=== PATIENT | male | born 1995 | race Asian ===

== ENCOUNTER → 2021-06-30 14:11 | Outpatient (CLI) | payer OTHER, SELFPAY | PROVIDERS: Visit Provider Family Medicine | DX: Z23 Encounter for immunization (principal) ==

== ENCOUNTER 2022-02-04 00:23 | Emergency (ER) | payer BC, SELFPAY ==
--- NOTE | 2022-02-04 03:40 | CT_ITS ---
STUDY: CT ABDOMEN AND PELVIS WITH CONTRAST REASON FOR EXAM: Male, 26 years old. RLQ PAIN RADIATION DOSAGE (If Supplied By Facility): CTDIvol = ( 10.91 ) mGy, DLP = ( 465.09 ) mGycm TECHNIQUE: Transaxial images were obtained from the dome of the diaphragm to the symphysis pubis without oral contrast. IV 100mL Isovue-300 was administered. Sagittal and coronal images were reconstructed. Individualized dose optimization techniques were used for this CT. COMPARISON: None. FINDINGS: LOWER CHEST: Normal. LIVER: Normal. GALLBLADDER/BILE DUCTS: Normal. PANCREAS: Normal. SPLEEN: Normal. ADRENAL GLANDS: Normal. KIDNEYS/URETERS/BLADDER: Normal. RETROPERITONEUM/AORTA: Normal. BOWEL/MESENTERY: Focal wall thickening and pericolonic fat stranding in the cecum with trace free fluid in the right lower quadrant.. APPENDIX: Identified and normal. PERITONEUM: Trace free fluid in the pelvis. REPRODUCTIVE ORGANS: Normal. BONES/SOFT TISSUES: No acute abnormality. OTHER: None. CT/Abdomen/Pelvis W IV Cont ONLY IMPRESSION: Normal appendix. Inflammatory changes involving the cecum, consistent with cecal colitis. Electronically Signed: Rachid Hagen MD at 4:11 EDT ,
[2022-02-04 06:51] LABS: Albumin, Serum 3.8 g/dL (3.2-5.0); BUN 10 mg/dL (7-18); BUN/Creat Ratio 9.3 RATIO (10-20); Creatinine, Serum 1.08 mg/dL (0.70-1.30); EST Glomerular Filtration Rate 87 mL/min (>60); Est Glom Filt Rate - Afr Amer 105 mL/min (>60); Globulin 3.7 g/dL (2.2-4.2); Glucose 95 mg/dL (74-106); Protein, Total 7.5 g/dL (6.4-8.2)
[2022-02-04 06:52] LABS: AST(SGOT) 13 U/L (15-37); Alanine Aminotransfer ALT/SGPT 25 U/L (16-61); Alkaline Phosphatase 82 U/L (45-117); Anion Gap 5 (5-15); Calcium,Total 9.2 mg/dL (8.5-10.1); Chloride 106 mmol/L (98-107); Potassium 4.1 mmol/L (3.5-5.1); Sodium Level 140 mmol/L (136-145)
[2022-02-04 16:23] LABS: Hematocrit 45.6 % (40-54); Hemoglobin 15.4 g/dL (13.0-16.5); Mean Corp Hgb Conc 33.8 g/dL (32-36); Mean Corpuscular Hgb 29.8 pg (27.0-32.0); Mean Corpuscular Volume 88.2 fL (80-94); Mean Platelet Vol. 11.8 fl (6.2-12.0); Platelet Count 147 K/mm3 (150-450); RBC Distribution Width CV 13.3 % (11.6-14.6); RBC Distribution Width SD 43.4 fl (35.1-43.9); Red Blood Count 5.17 M/mm3 (4.6-6.2); White Blood Count 13.7 K/mm3 (4.4-11.0)
[2022-02-04 16:24] LABS: Absolute Lymphocyte Count 1.68 X10^3/uL (0.83-4.51); Absolute Neutrophil Count 10.5 X10^3/uL (2.0-7.7); Basophil# 0.03 X10^3/uL; Basophil% 0.2 % (0-1); Eosinophil# 0.44 X10^3/uL; Eosinophils% 3.2 % (0-5); Lymphocyte # 1.68 X10^3/ul (0.83-4.51); Lymphocyte % 12.3 % (19-41); Monocyte# 1.03 X10^3/uL; Monocyte% 7.5 % (0-10); Neutrophil # 10.46 X10^3/uL (2.7-7.7); Neutrophil % 76.4 % (47-70)
--- NOTE | 2022-02-05 00:26 | ED.VIS.GI ---
HPI HPI - GI History of Present Illness Informant: patient Narrative Narrative: Patient presents with a gradual onset of pain mostly in the lower abdomen to the right. He thought it was gas pressure. It is mild currently. It was moderate at worst. He does feel as though it is getting better now. No nausea vomiting diarrhea. No fevers or chills. He also states that he thinks panic added to it. He thinks it might of been after he ate a weird sauce. He has no history of Crohn's or ulcerative colitis in him or in the family. He is overall healthy with no medical problems, no surgery, no meds and no allergies. He does take occasional multivitamins. He states he might be a little constipated but is still moving his bowels. This chart is done in its entirety a day or more after the patient's visit. This is due to an extended computerized downtime that included computer, Internet, phones, radiology system and transient inability to obtain medications. There may be details that are missed due to the delayed documentation. There was also no ability to research old information that we may have on the patient. Also, this is done with [employer] software that may have errors. Minimizing these errors are attempted, but all may not be able to be found and corrected. ROS ROS ED Constitutional Constitutional ED: Denies chills, fever(s) or sweats ENT ENT ED: Denies rhinorrhea or sore throat Cardiovascular Cardiovascular: Denies chest pain or palpitations Respiratory/Chest Respiratory/Chest: Denies cough Gastrointestinal Gastrointestinal: Reports abdominal pain and constipation; Denies diarrhea, melena, nausea or vomiting Genitourinary Genitourinary ED: Denies dysuria, hematuria or urinary frequency Musculoskeletal Musculoskeletal: Denies back pain Integumentary Denies rash Neurologic Neurologic: Denies paresthesias or weakness Endocrine Endocrinology: Denies polydipsia or polyuria Hematologic/Lymphatic Hematologic/Lymphatic: Denies easy bleeding or easy bruising Allergic/Immunologic Allergic/Immunologic ED: Denies urticaria EXAM Physical Exam Const Positive well nourished and well developed General Appearance ED: well developed and NAD HEENT Reports moist mucous membranes; Denies dry mucous membranes atraumatic Mouth ED: No dry mucous membranes Mouth: No dry mucous membranes Eyes General Eye ED: Negative for pale conjunctiva or scleral icterus Neck no JVD Resp normal respiratory effort and clear to auscultation bilaterally Cardio regular rate and regular rhythm GI non-distended and no masses GI Narrative: Bowel sounds are normal. Abdomen is flat. There is some very mild nonfocal tenderness toward the right lower quadrant. No rebound or guarding. No CVA tenderness Auscultation: normoactive bowel sounds Back/Spine no CVA tenderness Extremity full ROM Extremity Narrative: Negative psoas sign. Neuro Sensorium / Orientation: alert Psych mental status grossly normal Skin no wounds Lesions: no lesions Rashes: no rashes MDM MDM MDM Narrative Medical decision making narrative: Patient's white count was just slightly elevated at 13 7. Remainder of CBC was normal. Platelets were just a hair low. Electrolytes liver function tests were normal. Patient was reexamined. He still had some very mild tenderness to the right lower quadrant. Since that he still has this and his white count is slightly elevated we did do a CT of his abdomen. There were some inflammatory changes around the cecum consistent with cecal colitis but they saw the appendix and the appendix itself looked normal. I explained the findings to the patient. I explained that when the appendix is seen and is normal that significantly decreases the chance of having acute appendicitis. He needs to be cautious though. If he has worsening pains, vomiting fever or blood in the stool he may need to come back for repeat evaluation. Since he has inflammatory changes pain and a slight white count I will start him on antibiotics. We will have him follow-up with gastroenterology. Lab Data Attestation: I reviewed the patient's lab results. Labs: Laboratory Results - last 24 hr 02/04/22 02/04/22 01:25 01:25 WBC 13.7 H RBC 5.17 Hgb 15.4 Hct 45.6 MCV 88.2 MCH 29.8 MCHC 33.8 RDW Std Deviation 43.4 RDW Coeff of Rl 13.3 Plt Count 147 L MPV 11.8 Immature Gran % (Auto) 0.400 Neut % (Auto) 76.4 H Lymph % (Auto) 12.3 L Cascade % (Auto) 7.5 Eos % (Auto) 3.2 Baso % (Auto) 0.2 Absolute Neuts (auto) 10.5 H Absolute Lymphs (auto) 1.68 Sodium 140 Potassium 4.1 Chloride 106 Carbon Dioxide 29.0 Anion Gap 5 BUN 10 Creatinine 1.08 Est GFR (MDRD) Af Amer 105 Est GFR (MDRD) Non-Af 87 BUN/Creatinine Ratio 9.3 L Glucose 95 Calcium 9.2 Total Bilirubin 0.70 AST 13 L ALT 25 Alkaline Phosphatase 82 Total Protein 7.5 Albumin 3.8 Globulin 3.7 Albumin/Globulin Ratio 1.0 Radiography Diagnostic Testing: Clinical Impression(s) from Imaging Studies Abdomen/Pelvis CT 02/04/22 03:40 IMPRESSION: Normal appendix. Inflammatory changes involving the cecum, consistent with cecal colitis. Electronically Signed: Rachid Hagen MD at 4:11 EDT , Discharge Plan Triage ED Provider: Joshua Stevens Dx/Rx/DC Orders Clinical Impression: Colitis, Abdominal pain, Leukocytosis Primary Care Provider: Care Physician,No Primary Disposition Disposition: Home, Self Care Discharge Date/Time: 02/04/22 08:04
== END 2022-02-04 08:04 | disposition home or self-care (01) ==
LOC: ED 05:47
PROVIDERS: Emergency Provider Emergency Medicine; Visit Provider Emergency Medicine
DX: K52.9 Noninfective gastroenteritis and colitis, unspecified (principal); R10.813 Right lower quadrant abdominal tenderness; D72.829 Elevated white blood cell count, unspecified
CPT/HCPCS: 36415; 74177; 80053; 85025; 99284; Q9967

== ENCOUNTER → 2022-12-12 | Outpatient (CLI) | payer BC, SELFPAY ==
[2022-12-12 11:11] LABS: Absolute Lymphocyte Count 2.29 X10^3/uL (0.83-4.51); Absolute Neutrophil Count 2.3 X10^3/uL (2.0-7.7); Basophil# 0.06 X10^3/uL; Basophil% 1.1 % (0-1); Eosinophil# 0.31 X10^3/uL; Eosinophils% 5.8 % (0-5); Hematocrit 45.3 % (40-54); Hemoglobin 14.8 g/dL (13.0-16.5); Lymphocyte # 2.29 X10^3/ul (0.83-4.51); Lymphocyte % 42.6 % (19-41); Mean Corp Hgb Conc 32.7 g/dL (32-36); Mean Corpuscular Hgb 28.8 pg (27.0-32.0); Mean Corpuscular Volume 88.1 fL (80-94); Mean Platelet Vol. 11.7 fl (6.2-12.0); Monocyte# 0.45 X10^3/uL; Monocyte% 8.4 % (0-10); NRBC Flagged by Analyzer 0 % (0-5); Neutrophil # 2.26 X10^3/uL (2.7-7.7); Neutrophil % 42.1 % (47-70); Platelet Count 173 K/mm3 (150-450); RBC Distribution Width CV 12.9 % (11.6-14.6); RBC Distribution Width SD 42.2 fl (35.1-43.9); Red Blood Count 5.14 M/mm3 (4.6-6.2); White Blood Count 5.4 K/mm3 (4.4-11.0)
[2022-12-12 11:33] LABS: Hemoglobin A1c 5.2 % (3.8-5.6)
[2022-12-12 11:42] LABS: AST(SGOT) 17 U/L (15-37); Alanine Aminotransfer ALT/SGPT 34 U/L (16-61); Albumin, Serum 3.9 g/dL (3.2-5.0); Alkaline Phosphatase 86 U/L (45-117); Anion Gap 7 (5-15); BUN 7 mg/dL (7-18); BUN/Creat Ratio 7.8 RATIO (10-20); Calcium,Total 9.4 mg/dL (8.5-10.1); Chloride 105 mmol/L (98-107); Cholesterol 184 mg/dL (200); EST Glomerular Filtration Rate 105 mL/min (>60); Est Glom Filt Rate - Afr Amer 127 mL/min (>60); Globulin 3.8 g/dL (2.2-4.2); Glucose 94 mg/dL (74-106); High Density Lipoprotein 55 mg/dL; Potassium 3.8 mmol/L (3.5-5.1); Protein, Total 7.7 g/dL (6.4-8.2); Sodium Level 141 mmol/L (136-145); Thyroid Stim Hormone (TSH) 1.04 uIU/mL (0.358-3.74); Triglycerides 72 mg/dL; Very Low Density Lipoprotein 14 mg/dL (5-40)
[2022-12-15 08:34] LABS: Vitamin D,25 Hydroxy 38.9 ng/mL
== END | disposition home or self-care (01) ==
LOC: LAB 10:25
PROVIDERS: PCP Internal Medicine; Referring Provider Internal Medicine; Visit Provider Internal Medicine
DX: Z00.00 Encounter for general adult medical examination without abnormal findings (principal); R73.9 Hyperglycemia, unspecified; Z13.220 Encounter for screening for lipoid disorders; E55.9 Vitamin D deficiency, unspecified
CPT/HCPCS: 36415; 80053; 80061; 82306; 83036; 84443; 85025